=== PATIENT | male | born 1980 | race Caucasian/White ===

== ENCOUNTER 2024-08-09 07:52 | Outpatient (CLI) | payer MEDICAID, SELFPAY ==
--- NOTE | 2024-08-09 07:45 | RT.EKG_ITS ---
APPROVED REPORT Exam: Resting ECG Reason for Exam: dizziness Patient Location: O HR:75 bpm ECG Measurements Heart Rate 75 AXIS NE 160 P 32 QRSd 77 QRS -22 QT 388 T 54 QTc 434 Conclusion Sinus rhythm...normal P axis, V-rate 50- 99 Normal Electrocardiogram
== END 2024-08-09 07:53 | disposition home or self-care (01) ==
LOC: DI.CARD 07:52
PROVIDERS: Visit Provider Internal Medicine Cardiovascular Disease
DX: R07.9 Chest pain, unspecified (principal); R42 Dizziness and giddiness
CPT/HCPCS: 93010